=== PATIENT | female | born 1990 | race Caucasian/White ===

== ENCOUNTER 2018-09-14 14:09 | Emergency (ER) | payer OTHER, SELFPAY ==
[2018-09-14] VITALS (8 sets, daily range): BP systolic 103–133; BP diastolic 52–74; PULSE 67–89; RESP 14–16; TEMP 36.7; O2SAT 97–100
[2018-09-14] MEDS: ONDANSETRON 4 MG/2 ML INJ IV (17:22)
[2018-09-14] MEDS: SODIUM CHLORIDE 0.9% 1,000 ML 1000 ML IV ×2 (17:22→18:35)
--- NOTE | 2018-09-14 17:26 | ED.NAVMDI ---
HPI - Nausea/Vomiting/Diarrhea General Chief complaint: Nausea/Vomiting/Diarrhea Stated complaint: VOMITTING Time Seen by Provider: 09/14/18 17:05 Source: patient Mode of arrival: ambulatory Limitations: no limitations History of Present Illness HPI Narrative: This is a 28-year-old female comes to the emergency department with complaint of nausea and vomiting as well as diarrhea. Her 1st episode happened about 4 days ago. Patient states that she slowly got better over 24 hr. She continued to feel weak and tired and she has had quite a bit of morning sickness. She is probably about 9-10 weeks . Her last menstrual period was on June 29. Patient has had lab work Um verifying her but no ultrasound. Patient states that today her vomiting and diarrhea returned. She has not been able to keep much fluids in. She states she has been urinating but she is not very well hydrated. She has not had any fevers, she has a mild headache today with her vomiting. She states she does have a history of migraines. Patient does not any chest pain, no shortness of breath. She denies any abdominal pain. The 1st episode a couple days ago she did have a little bit of abdominal cramping with the diarrhea. Patient has a black or bloody stools. She does have any flank pain. She states she has had morning sickness with her 2 prior pregnancies which were successful pregnancies with 2 sons. But she has not had symptoms of this intensity. Related Data Allergies Allergy/AdvReac Type Severity Reaction Status Date / Time No Known Drug Allergies Allergy Verified 09/14/18 14:17 Review of Systems Review of Systems All systems reviewed & are unremarkable except as noted in HPI and below Constitutional Denies chills, Denies fever(s), Reports headache(s) (mild) and Reports poor appetite ENT Ears, Nose, Mouth, and Throat: Denies vertigo, Denies dizziness, Reports headache(s) (mild) and Denies nasal congestion Cardiovascular Denies chest pain, Denies diaphoresis, Denies syncope, Denies edema and Denies dyspnea Respiratory Denies change in phlegm color, Denies chest congestion, Denies cough, Denies excessive phlegm production, Denies dyspnea and Denies wheezing Gastrointestinal Gastrointestinal: Denies abdominal pain, Reports change in bowel habits, Denies constipation, Reports diarrhea, Reports nausea and Reports vomiting Genitourinary Reports as per HPI (), Denies abnormal vaginal bleeding, Denies hematuria, Denies urinary frequency, Denies dysuria, Denies flank pain, Denies urinary incontinence, Denies urinary urgency and Reports other (decreased/darker urine) Musculoskeletal Denies back pain Neurologic Denies vertigo, Denies dizziness, Denies syncope and Reports headache(s) (mild) Allergic/Immunologic Denies wheezing [facility] Social History Smoking Status: Never smoker Exam Narrative Exam Narrative: GENERAL: Alert and oriented x three, well-appearing female in mild distress. HEENT: Head normocephalic, atraumatic, EOMI, pupils reactive, face symmetric, moist mucous membranes NECK: Supple, full range of motion CARDIOVASCULAR: Regular rate and rhythm without murmurs, rubs or gallops. RESPIRATORY: Breath sounds equal bilaterally, no wheezes rales or rhonchi. ABDOMEN: Soft, nontender. Nondistended. Normoactive bowel sounds all 4 quadrants. No guarding or rebound, rigidity, no mass. No tympany. : No CVA tenderness EXTREMITIES: Normal range of motion, no clubbing or edema. Neurovascularly intact NEUROLOGICAL: Cranial nerves II through XII grossly intact. Moving all extremities SKIN: Warm, dry, no petechiae, no rashes or lesions. Initial Vital Signs Initial Vital Signs: Vital Signs Temperature 98.1 F 09/14/18 14:18 Pulse Rate 79 09/14/18 14:18 Respiratory Rate 16 09/14/18 14:18 Blood Pressure 133/67 09/14/18 14:18 Pulse Oximetry 99 09/14/18 14:18 Course Orders Ordered: Discontinued Medications Acetaminophen (Tylenol) 975 mg PO NOW ONE Stop: 09/14/18 18:02 Last Admin: 09/14/18 18:33 Dose: 975 mg Sodium Chloride (Normal Saline 0.9%) 1,000 mls @ 1,000 mls/hr IV BOLUS ONE Stop: 09/14/18 18:18 Last Infusion: 09/14/18 18:39 Dose: 0 mls/hr Admin: 09/14/18 17:22 Dose: 1,000 mls/hr Sodium Chloride (Normal Saline 0.9%) 1,000 mls @ 1,000 mls/hr IV BOLUS ONE Stop: 09/14/18 18:23 Last Infusion: 09/14/18 19:53 Dose: 0 mls/hr Admin: 09/14/18 18:35 Dose: 1,000 mls/hr Metoclopramide HCl (Reglan) 10 mg IV NOW ONE Stop: 09/14/18 18:58 Last Admin: 09/14/18 19:11 Dose: 10 mg Ondansetron HCl (Zofran) 4 mg IV NOW ONE Stop: 09/14/18 17:20 Last Admin: 09/14/18 17:22 Dose: 4 mg Ondansetron HCl (Zofran Odt Prepack) 1 bottle MISC SEEINSTR ONE Stop: 09/14/18 19:01 Last Admin: 09/14/18 19:23 Dose: 1 bottle Vital Signs - 8 hr 09/14/18 14:18 09/14/18 16:40 09/14/18 17:40 Temperature 98.1 F Pulse Rate 79 67 74 Respiratory Rate 16 14 14 Blood Pressure 133/67 Blood Pressure [Left Arm] 126/74 105/70 Pulse Oximetry 99 97 100 MDM - Nausea/Vomiting/Diarrhea Lab Data Attestation: I reviewed the patient's lab results. Result diagrams: 09/14/18 17:21 09/14/18 17:21 Lab Results 09/14/18 09/14/18 Range/Units 17:21 17:21 WBC 7.5 (4.5-11.0) X10^3/uL RBC 4.69 (4.0-5.2) X10^6/uL Hgb 13.0 (12.0-16.0) g/dL Hct 38.1 (36-46) % MCV 81.2 (80-100) fL MCH 27.7 (26-34) PG MCHC 34.2 (30-36) % RDW 13.4 (11.6-14.8) % Plt Count 230 (150-400) X10^3/uL Neut % (Auto) 59.3 (50-75) % Lymph % (Auto) 32.5 (25-40) % [place] % (Auto) 5.5 (3-14) % Eos % (Auto) 2.2 (2-4) % Baso % (Auto) 0.5 (0-2) % Neut # (Auto) 4400 (9926-5744) /uL Sodium 140 (137-145) mmol/L Potassium 3.4 (3.4-5.1) mmol/L Chloride 106 (98-107) mmol/L Carbon Dioxide 22 (22-32) mmol/L BUN 7 (7-17) mg/dL Creatinine 0.50 L (0.52-1.04) mg/dL Estimated GFR > 60.0 (>60) mL/min BUN/Creatinine Ratio 14.0 (6-22) Glucose 77 (70-100) mg/dL Calcium 11.6 H (8.4-10.2) mg/dL Total Bilirubin 0.7 (0.2-1.3) mg/dL AST 22 (14-36) IU/L ALT 27 (9-52) IU/L Alkaline Phosphatase 84 (38-126) U/L Total Protein 7.2 (6.3-8.2) g/dL Albumin 4.4 (3.5-5.0) g/dL Globulin 2.8 (1.7-4.1) g/dL Albumin/Globulin Ratio 1.6 (1.0-2.8) Lipase 46 (23-300) U/L Urine Dip Bedside Urine Glucose Negative Bedside Urine Bilirubin - Negative Bedside Urine Ketone +++ 80 Urine Specific [place] 1.020 Bedside Urine Occult Blood - Negative Bedside Urine pH 6.0 Bedside Urine Protein - Negative Bedside Urine Urobilinogen - Negative Bedside Urine Nitrite - Negative Bedside Urine Leukocytes - Negative Esterase MDM Narrative Medical decision making narrative: Patient looks well, her vitals are stable. She is 11 weeks by dates. Patient has been having some morning sickness, this could potentially be hyperemesis versus a worsening of her morning sickness, a viral illness or other cause. Her belly exam is benign and she is not having any abdominal pain. Will hold off ultrasound as she is scheduled to have 1 on Friday she is not having any symptoms concerning for ectopic or other major changes. Lab work was ordered as well as Zofran and a L of fluids. On recheck patient's nauseous still present but her headache is doing better after some Tylenol. She has not had any vomiting but still feels sort of upset stomach. She has given a urine sample. Discharge Plan Departure Patient Disposition: Home Clinical Impression: Nausea vomiting and diarrhea, Discharge Date/Time: 09/14/18 20:16 Interventions: ED Discharge Assessment Last Done: 09/14/18 20:16 Instructions: DI for Vomiting -- Adult Activity Restrictions/Additional Instructions: Follow-up with your primary care physician this week. May continue Zofran 1 tablet every 6 hr sublingually as needed for nausea. Make sure your continue to stay hydrated whether this is with fluid, Gatorade or other similar forms of hydration. Return to the emergency department for fevers, abdominal pain, flank pain, persistent vomiting, signs of dehydration or other new or concerning symptoms.
[2018-09-14 17:34] LABS: Add Manual Diff / Slide Review NO; Basophils Percent Auto 0.5 % (0-2); Eosinophils Percent Auto 2.2 % (2-4); Hematocrit 38.1 % (36-46); Lymphocytes Percent Auto 32.5 % (25-40); Mean Corpuscular HGB Conc 34.2 % (30-36); Mean Corpuscular Hemoglobin 27.7 PG (26-34); Mean Corpuscular Volume 81.2 fL (80-100); Monocytes Percent Auto 5.5 % (3-14); Neutrophils Absolute Auto 4400 /uL (1500-7000); Neutrophils Percent Auto 59.3 % (50-75); Platelet Count 230 X10^3/uL (150-400); Red Blood Cell Count 4.69 X10^6/uL (4.0-5.2); Red Cell Distribution Width 13.4 % (11.6-14.8); White Blood Cell Count 7.5 X10^3/uL (4.5-11.0)
[2018-09-14 17:54] LABS: Alanine Aminotransferase 27 IU/L (9-52); Albumin 4.4 g/dL (3.5-5.0); Albumin Globulin Ratio 1.6 (1.0-2.8); Alkaline Phosphatase 84 U/L (38-126); Aspartate Aminotransferase 22 IU/L (14-36); Bilirubin Total 0.7 mg/dL (0.2-1.3); Blood Urea Nitrogen 7 mg/dL (7-17); Calcium 11.6 mg/dL (8.4-10.2); Carbon Dioxide 22 mmol/L (22-32); Chloride 106 mmol/L (98-107); Estimated Glomerular Filt Rate > 60.0 mL/min (>60); Globulin 2.8 g/dL (1.7-4.1); Glucose 77 mg/dL (70-100); HEMOLYSIS < 15 (0-50); Lipase 46 U/L (23-300); Potassium 3.4 mmol/L (3.4-5.1); Sodium 140 mmol/L (137-145); Total Protein 7.2 g/dL (6.3-8.2)
[2018-09-14] MEDS: ACETAMINOPHEN 325 MG TABLET 975 MG PO (18:33)
[2018-09-14] MEDS: METOCLOPRAMIDE 10 MG/2 ML INJ IV (19:11)
--- NOTE | 2018-09-14 19:16 | PC.NURSE ---
9-10 weeks , [id number]. onset of nausea and vomiting, last friday, , felt fine fri,sat, friday. onset of vomiting today at 11am, 9times. noted pt wretching 3 times while waiting, medicated for comfort.
[2018-09-14] MEDS: ONDANSETRON 4 MG ODT PREPACK 1 BOTTLE MISC (19:23)
== END 2018-09-14 20:16 | disposition home or self-care (01) ==
PROVIDERS: Emergency Provider Emergency Medicine
DX: O21.9 Vomiting of pregnancy, unspecified (principal); Z3A.11 11 weeks gestation of pregnancy
CPT/HCPCS: 36591; 80053; 81003; 83690; 85025; 96361; 96374; 96375; 99284; J2405; J2765

== ENCOUNTER → 2019-01-21 09:55 | Outpatient (CLI) | payer OTHER, SELFPAY ==
[2019-01-21 10:26] LABS: Hematocrit 35.4 % (36-46); Hemoglobin 11.8 g/dL (12.0-16.0)
[2019-01-21 12:38] LABS: GTT (PREG) 1 Hour PP 50gm Dose 78 mg/dL (76-139)
== END ==
DX: O26.899 Other specified pregnancy related conditions, unspecified trimester (principal); Z3A.29 29 weeks gestation of pregnancy; Z67.91 Unspecified blood type, Rh negative
CPT/HCPCS: 82950; 85014; 85018; 86850

== ENCOUNTER 2019-02-28 17:56 | Observation (INO) | payer OTHER, SELFPAY ==
[2019-02-28] MEDS: LACTATED RINGERS 1,000 ML 1000 ML IV ×2 (18:45→19:59)
[2019-02-28] MEDS: ONDANSETRON 4 MG/2 ML INJ IV (18:55)
--- NOTE | 2019-03-01 11:09 | PM.OBTRLD ---
Visit Information Visit Information Date of evaluation: 02/28/19 Primary OB Provider: Shane Martines On-call OB Provider: Vanesa Garcia Reason for Evaluation: Yes pre-term labor Comments/Additional reasons for admission: Nausea vomiting and diarrhea Vital Signs Vital Signs: Blood pressure 98/56, pulse of 82, temperature 97.7? [facility] Social History Smoking Status: Never smoker Evaluation Evaluation Baseline heart rate: 145 Variability: Moderate (11-25) monitor accelerations: Present monitor decelerations: Absent Contraction Frequency (minutes): 4 Uterine Contraction Intensity: Mild Category of Tracing: I Cervical dilation (cm): 0 Cervical effacement (%): 0 station: -4 Diagnosis, Plan/Disposition Final Diagnosis (1) 34 weeks gestation of : Current Visit: No Status: Acute (2) Premature uterine contractions causing threatened premature labor in third trimester: Current Visit: No Status: Acute (3) Gastroenteritis: Current Visit: No Status: Acute Plan/Disposition Plan: Patient with nausea vomiting and diarrhea that brought her to the hospital. She was having contractions on the monitor. She received Zofran and 2 L of IV fluids. The patient's cervix was checked and was not dilated. Patient felt better after her fluids and Zofran and was discharged home. She is to call if her symptoms worsen status continued to improve. OB Disposition: home
--- NOTE | 2019-03-01 11:12 | P.TNLD_ITS ---
Visit Information Visit Information Date of evaluation: 02/28/19 Primary OB Provider: Shane Martines On-call OB Provider: Vanesa Garcia Reason for Evaluation: Yes pre-term labor Comments/Additional reasons for admission: Nausea vomiting and diarrhea Vital Signs Vital Signs: Blood pressure 98/56, pulse of 82, temperature 97.7? [facility] Social History Smoking Status: Never smoker Evaluation Evaluation Baseline heart rate: 145 Variability: Moderate (11-25) monitor accelerations: Present monitor decelerations: Absent Contraction Frequency (minutes): 4 Uterine Contraction Intensity: Mild Category of Tracing: I Cervical dilation (cm): 0 Cervical effacement (%): 0 station: -4 Diagnosis, Plan/Disposition Final Diagnosis (1) 34 weeks gestation of : Current Visit: No Status: Acute (2) Premature uterine contractions causing threatened premature labor in third trimester: Current Visit: No Status: Acute (3) Gastroenteritis: Current Visit: No Status: Acute Plan/Disposition Plan: Patient with nausea vomiting and diarrhea that brought her to the hospital. She was having contractions on the monitor. She received Zofran and 2 L of IV fluids. The patient's cervix was checked and was not dilated. Patient felt better after her fluids and Zofran and was discharged home. She is to call if her symptoms worsen status continued to improve. OB Disposition: home
== END 2019-02-28 21:30 | disposition home or self-care (01) ==
LOC: LABOR 17:58
PROVIDERS: Admitting Provider Specialist; Visit Provider Specialist
DX: O47.03 False labor before 37 completed weeks of gestation, third trimester (principal); K52.9 Noninfective gastroenteritis and colitis, unspecified; Z3A.34 34 weeks gestation of pregnancy
CPT/HCPCS: 59025; 59050; G0378; G0379; J2405

== ENCOUNTER → 2019-03-02 17:01 | Outpatient (CLI) | payer OTHER, SELFPAY ==
[2019-03-03 18:53] LABS: Strep Grp B PCR NEG for Grp B Strep
== END ==
DX: Z34.83 Encounter for supervision of other normal pregnancy, third trimester (principal); Z3A.35 35 weeks gestation of pregnancy
CPT/HCPCS: 87653

== ENCOUNTER 2019-03-22 03:16 | Inpatient (IN) | payer OTHER, SELFPAY ==
[2019-03-22 04:26] LABS: Add Manual Diff / Slide Review NO; Basophils Absolute Auto 0 /uL (0-100); Basophils Percent Auto 0.4 % (0-2); Eosinophils Absolute Auto 200 /uL (0-450); Eosinophils Percent Auto 2.1 % (2-4); Hematocrit 33.7 % (36-46); Hemoglobin 11.1 g/dL (12.0-16.0); Lymphocytes Absolute Auto 1900 /uL (1100-4500); Lymphocytes Percent Auto 18.7 % (25-40); Mean Corpuscular Hemoglobin 26.1 PG (26-34); Monocytes Absolute Auto 900 /uL (0-900); Monocytes Percent Auto 8.5 % (3-14); Neutrophils Absolute Auto 7200 /uL (1500-7000); Neutrophils Percent Auto 70.3 % (50-75); Platelet Count 240 X10^3/uL (150-400); Red Blood Cell Count 4.27 X10^6/uL (4.0-5.2); Red Cell Distribution Width 13.4 % (11.6-14.8); White Blood Cell Count 10.2 X10^3/uL (4.5-11.0)
[2019-03-22] MEDS: LACTATED RINGERS 1,000 ML 100 ML IV (04:37)
[2019-03-22 04:39] VITALS: BP 121/72
--- NOTE | 2019-03-22 05:07 | P.HPOB_ITS ---
OB HPI Date/Time Date of admission: 03/22/19 Date Patient Seen: 03/22/19 Time Patient Seen: 04:58 History of Present Condition Chief complaint: Evaluation of labor : 3 Para: 2 Estimated Date of Delivery: 04/05/19 Estimated Gestational Age (weeks): 38 Narrative: Kandi Breen is a 29 year old female 3 para 2 at 38 weeks gestation who presented in active labor One episode of leakage of fluid. No vaginal bleeding. History of Present care: good care, initiated at week #, number of visits (7 at ) and pounds weight gain (20) Dating criteria: LMP confirmed by 1st trimester US Ultrasounds: normal 1st trimester US and normal mid trimester US Obstetrical complications: none Medical complications: none Preadmission Labs Blood type: 0 (-) negative -: Antibody screen: negative, GBS status: negative, HBsAG: negative, HIV: negative and RPR/VDLR: negative -: Chlamydia screen: not detected and Gonorrhea screen: not detected -: Rubella: immune and Varicella: immune HCT: 35.4 HCAB: negative PAP: Normal Integrated screen: normal Urine: No growth 1 hr GTT: 78 Prior (ies) History: 2 in [place]. distress secondary to double nuchal cord with both 8#6oz, 7#3oz Evaluation Evaluation Baseline heart rate: 130 Variability: Moderate (11-25) monitor accelerations: Present monitor decelerations: Absent Contraction Frequency (minutes): 3 Uterine Contraction Intensity: Strong/Firm Category of Tracing: I Cervical dilation (cm): 7 Cervical effacement (%): 90 station: -2 Laboratory results: Laboratory Tests 03/22/19 04:10 WBC 10.2 RBC 4.27 Hgb 11.1 L Hct 33.7 L MCV 79.0 L MCH 26.1 MCHC 33.0 RDW 13.4 Plt Count 240 Neut % (Auto) 70.3 Lymph % (Auto) 18.7 L [place] % (Auto) 8.5 Eos % (Auto) 2.1 Baso % (Auto) 0.4 Neut # (Auto) 7200 H Lymph # (Auto) 1900 [place] # (Auto) 900 Eos # (Auto) 200 Baso # (Auto) 0 Non-invasive Membranes Rupture Test: positive [facility] Medical History (Updated 03/22/19 @ 05:06 by Agatha Sifuentes MD) H/O abnormal cervical Papanicolaou smear (Acute) Kidney stones (Acute) Surgical History (Updated 03/22/19 @ 05:05 by Agatha Sifuentes MD) H/O oral surgery (Acute) Social History Smoking Status: Never smoker Social History Smoking Status: Never smoker Meds Home Medications Medication Instructions Recorded Confirmed Type 1 tab PO DAILY 12/16/18 03/22/19 History vitamin,calcium,yidjjsnn-gsht-ywchq acid tablet acyclovir 400 mg tablet 400 mg PO BID #60 tab 02/02/19 03/22/19 Rx Allergies Allergy/AdvReac Type Severity Reaction Status Date / Time Latex, Natural Rubber Allergy Mild Rash Verified 12/16/18 12:26 Exam Vital Signs (past 8 hours): - 03/22/19 04:39 Blood Pressure 121/72 Narrative Exam Narrative: Generally: Patient is comfortable with an epidural Lungs: Clear to auscultation bilaterally Cardiovascular: Regular rate and rhythm Fundal height: 38 cm Estimated weight: 7 lb Extremities: Negative Homans, no edema Objective Labs Result Diagrams: 03/22/19 04:10 Labs: Laboratory Results - last 24 hr 03/22/19 04:10 WBC 10.2 RBC 4.27 Hgb 11.1 L Hct 33.7 L MCV 79.0 L MCH 26.1 MCHC 33.0 RDW 13.4 Plt Count 240 Neut % (Auto) 70.3 Lymph % (Auto) 18.7 L [place] % (Auto) 8.5 Eos % (Auto) 2.1 Baso % (Auto) 0.4 Neut # (Auto) 7200 H Lymph # (Auto) 1900 [place] # (Auto) 900 Eos # (Auto) 200 Baso # (Auto) 0 Assessment and Plan Assessment and Plan Assessment and Plan narrative: Assessment: 29-year-old 3 para 2 at 38 weeks gestation in active labor GBS negative History of some anxiety with the prior 2 deliveries due to distress Plan: Expected management to spontaneous vaginal delivery Time Spent with Patient Total time spent with greater than 50% in coordination of care (as documented) at patient's floor/unit and/or counseling patient:: 15-24 minutes
--- NOTE | 2019-03-22 08:01 | PM.OBPRVD ---
Delivery date: 03/22/19 Intrapartal events: None Cervical ripening method: none Delivery monitor: external FHT and external uterine Route of delivery: L&D Laceration Description: None Estimated blood loss (mL): 200 Anesthesia type: Epidural Complications: None Narrative: Patient is a 29-year-old white female three para two. The patient had two prior deliveries with nuchal cords and a nuchal cord had been checked for recently had was found x1. Patient had an uneventful . Patient presented in labor and was 8-9 cm by 7:00 a.m.. Patient was complete by 7:30 a.m. and pushed and delivered spontaneously a live born male with scores of eight at 1 minute nine at 5 minutes in good condition. Placenta delivered spontaneously. There were no nuchal cords. The cord had three vessels. The estimated blood loss was 200 cc. Sponge and needle counts were correct. There were no cervical or vaginal or perineal lacerations Plan for aftercare: Routine aftercare
[2019-03-22] MEDS: IBUPROFEN 600 MG TABLET PO ×3 (08:55→23:10)
[2019-03-22] MEDS: LANOLIN OINT 7 GM 1 APPLIC TOP (09:03)
[2019-03-23] MEDS: IBUPROFEN 600 MG TABLET PO ×2 (04:28→10:49)
[2019-03-23 06:23] LABS: Hematocrit 31.3 % (36-46); Hemoglobin 10.3 g/dL (12.0-16.0)
[2019-03-23] MEDS: DOCUSATE 250 MG CAPSULE PO (08:47)
[2019-03-23] MEDS: FERROUS GLUCONATE 324 MG TABLET PO (08:47)
[2019-03-23] MEDS: RHO(D) IMMUNE GLOBULIN 1,500 UNIT SYRINGE 1500 UNIT IM (09:37)
--- NOTE | 2019-03-23 11:06 | PM.OBDS.1 ---
Discharge Providers Date of admission: 03/22/19 03:16 Discharge Date: 03/23/19 Consults: 03/22/19 03:42 Consult to Anesthesiology Urgent Comment: Consulting Provider: Jonatan Saldaña Reason for consultation: Labor pain management 03/22/19 08:51 Consult to Multimedia Authoring Specialist Routine Comment: Discharge provider: Shane Martines MD Summary Date Patient Seen: 03/23/19 Time Patient Seen: 11:06 Procedures: The patient is a 29-year-old two now para two who presented in active labor. Patient had a rapid labor with epidural anesthesia and delivered spontaneously a live born female infant with scores of nine and nine. The estimated blood loss was 200 cc. Post delivery the patient did well. She remained afebrile with stable vital signs and was progressively elevated and ambulated. She was discharged home for follow-up in four weeks. Hospital Course: Please see above Peripartum Data Delivery Method: Natural Vaginal Laceration description: None complications: none Status at Discharge Cognitive/behavioral status at discharge: oriented Functional status at discharge: independent ambulation Overall status at discharge: patient is progressing back to baseline Time Spent with Patient Total time spent providing and/or coordinating discharge services: Objective Labs Result Diagrams: 03/23/19 06:05 Labs: Laboratory Results - last 24 hr 03/23/19 03/23/19 06:05 06:05 Hgb 10.3 L Hct 31.3 L Maternal Bleed Negative Discharge Plan Discharge Plan Patient Disposition: Home Discharge Med Rec/Prescriptions Prescriptions: New oxycodone-acetaminophen 5-325 mg Tablet 2 tab PO Q4HR Qty: 14 RF: 0 ibuprofen 600 mg Tablet 600 mg PO Q6H PRN (Reason: As Needed For Fever/Mild Pain) Qty: 20 RF: 0 docusate sodium 250 mg Capsule 250 mg PO DAILY Qty: 10 RF: 0 Prenatabs Rx 29 mg iron- 1 mg Tablet 1 tab PO DAILY Qty: 60 RF: 0 Discontinued acyclovir 400 mg tablet 400 mg PO BID Qty: 60 RF: 3 prenat.vits,bravo,lij-madb-dedvp tablet 1 tab PO DAILY RF: 0 Follow up/Referrals: Shane Martines MD [Physician] - 04/20/19 Provider Discharge Instructions Diet: Diet as Tolerated Activity: Up ad ck Skin/Wound/Dressing Care Report to your healthcare provider any signs of infection, such as:: chills, fever, increased pain and unusual redness Discharge Data Attending Provider: Agatha Sifuentes Admit Date/Time: 03/22/19 03:16
[2019-03-23 13:01] VITALS: BP 110/69; PULSE 84; RESP 16; TEMP 37.1
== END 2019-03-23 14:10 | disposition home or self-care (01) | DRG 807 ==
PROVIDERS: Admitting Provider Obstetrics & Gynecology; Visit Provider Obstetrics & Gynecology
DX: O98.32 Other infections with a predominantly sexual mode of transmission complicating childbirth (principal); Z37.0 Single live birth; B00.9 Herpesviral infection, unspecified; Z3A.38 38 weeks gestation of pregnancy
CPT/HCPCS: 01967; 59050; 59410; 84112; 85014; 85018; 85025; 85461; 86850; 86870; 86900; 86901; G0379; J2790

== ENCOUNTER 2019-06-23 11:01 | Emergency (ER) | payer OTHER, SELFPAY ==
[2019-06-23 11:05] VITALS: BP 115/69; PULSE 77; RESP 20; TEMP 36.4; O2SAT 99; BMI 25.7
--- NOTE | 2019-06-23 11:29 | PC.NURSE ---
Patient three month old baby had viral meningitis three weeks ago. Mother has had fever, neck pain and body aches since friday. Some nausea and vomiting.
[2019-06-23 11:51] LABS: Lactate (Lactic Acid) 0.8 mmol/L (0.7-2.1)
[2019-06-23 11:52] LABS: Blood Urea Nitrogen 12 mg/dL (7-17); Calcium 11.5 mg/dL (8.4-10.2); Carbon Dioxide 27 mmol/L (22-32); Chloride 105 mmol/L (98-107); Estimated Glomerular Filt Rate > 60.0 mL/min (>60); Glucose 95 mg/dL (70-100); HEMOLYSIS < 15 (0-50); Potassium 4.2 mmol/L (3.4-5.1); Sodium 140 mmol/L (137-145)
[2019-06-23 11:56] LABS: Add Manual Diff / Slide Review NO; Basophils Absolute Auto 0 /uL (0-100); Basophils Percent Auto 0.6 % (0-2); Eosinophils Absolute Auto 100 /uL (0-450); Eosinophils Percent Auto 3.1 % (2-4); Hematocrit 43.1 % (36-46); Hemoglobin 14.3 g/dL (12.0-16.0); Lymphocytes Absolute Auto 1200 /uL (1100-4500); Lymphocytes Percent Auto 34.1 % (25-40); Mean Corpuscular HGB Conc 33.1 % (30-36); Mean Corpuscular Hemoglobin 26.6 PG (26-34); Mean Corpuscular Volume 80.2 fL (80-100); Monocytes Absolute Auto 400 /uL (0-900); Monocytes Percent Auto 10.9 % (3-14); Neutrophils Absolute Auto 1900 /uL (1500-7000); Neutrophils Percent Auto 51.3 % (50-75); Platelet Count 199 X10^3/uL (150-400); Red Blood Cell Count 5.37 X10^6/uL (4.0-5.2); Red Cell Distribution Width 15.7 % (11.6-14.8); White Blood Cell Count 3.6 X10^3/uL (4.5-11.0)
[2019-06-23] MEDS: ONDANSETRON 4 MG/2 ML INJ IV (12:13)
[2019-06-23] MEDS: KETOROLAC 60 MG/2 ML VIAL 15 MG IV (12:13)
[2019-06-23] MEDS: SODIUM CHLORIDE 0.9% 1,000 ML 1000 ML IV (12:13)
[2019-06-23 12:21] VITALS: BP 113/69; PULSE 72; RESP 17; O2SAT 99
[2019-06-23 12:23] LABS: Influenza A and B by PCR Rapid Negative (Negative)
[2019-06-23 13:00] VITALS: BP 105/66; PULSE 84; RESP 17; O2SAT 97
[2019-06-23 14:00] VITALS: BP 94/55; PULSE 73; RESP 17; O2SAT 100
[2019-06-23 14:04] VITALS: BP 94/55; PULSE 73; RESP 20; O2SAT 100
--- NOTE | 2019-06-23 19:09 | ED_ITS ---
HPI - Fever General Chief Complaint: Fever Stated Complaint: neck/head pain/fever/vomiting x4 days Time Seen by Provider: 06/23/19 11:05 Source: patient Mode of arrival: Ambulatory Limitations: no limitations History of Present Illness HPI Narrative: 29-year-old female nonsmoker and otherwise healthy patient presents with about a week of runny nose, sore throat and subjective fever with the development of some generalized headache and occasional neck pain. She has admittedly had a decreased appetite and is slightly nauseated but has had no vomiting. She denies any chest pain, shortness of breath or cough. She has had no atypical rash, or recent injury. She is actually feeling relatively well, of note her 3-month-old was recently seen and evaluated for a viral meningitis and is now perfectly fine and well. MD complaint: other Onset (ago): week(s) Temperature Source: subjective Context: sick contacts and other(s) with similar symptoms Associated symptoms: headache, rhinorrhea, nasal congestion and sore throat Relieving factors: rest Treatments prior to arrival fever: acetaminophen and ibuprofen Related Data Previous Rx's Medication Instructions Recorded ibuprofen 600 mg PO Q6H PRN #20 tab 03/23/19 vit,[id number] 1 tab PO DAILY #60 tab 03/23/19 [Prenatabs Rx] Double Electric Breast Pump and #1 ea 03/31/19 Supplies ketorolac 10 mg PO Q6H PRN #14 tab 06/23/19 Allergies Allergy/AdvReac Type Severity Reaction Status Date / Time Latex, Natural Rubber Allergy Mild Rash Verified 05/04/19 10:23 Review of Systems Constitutional Constitutional: Reports chills, Denies fatigue, Reports fever(s), Denies frequent falls, Reports headache(s), Denies lethargy and Denies weakness Eyes Eyes: Denies change in vision, Denies eye discharge, Denies irritation and Denies loss of vision ENT Ears, Nose, Mouth, and Throat: Denies change in voice, Denies dizziness, Reports headache(s), Reports neck pain, Reports sore throat and Denies throat swelling Cardiovascular Cardiovascular: Denies chest pain, Denies irregular heart rhythm, Denies lightheadedness, Denies palpitations, Denies dyspnea, Denies dyspnea on exertion and Denies orthopnea Respiratory Respiratory: Denies cough, Denies dyspnea, Denies dyspnea on exertion and Denies wheezing Gastrointestinal Gastrointestinal: Denies abdominal pain, Denies change in bowel habits, Denies diarrhea, Denies nausea and Denies vomiting Genitourinary Genitourinary: Denies hematuria, Denies flank pain, Denies urinary incontinence and Denies urinary urgency Musculoskeletal Musculoskeletal: Denies back pain, Denies muscle weakness, Reports neck pain, Denies numbness and Denies tingling Integumentary/Breasts Skin/Breast: Denies pruritus, Denies erythema, Denies rash and Denies wounds Neurologic Neurologic: Denies behavioral changes, Denies confusion, Denies dizziness, Denies frequent falls, Reports headache(s), Denies loss of vision, Denies numbness, Denies tingling and Denies weakness Psychiatric Psychiatric: Denies anxiety, Denies behavioral changes, Denies confusion, Denies depression, Denies homicidal ideation and Denies suicidal ideation Endocrine Endocrine: Denies fatigue, Denies flushing and Denies palpitations Hematologic/Lymphatic Hematologic/Lymphatic: Denies easy bruising Allergic/Immunologic Allergic/Immunologic: Denies urticaria, Denies throat swelling and Denies wheezing [facility] Medical History H/O abnormal cervical Papanicolaou smear (Acute) Kidney stones (Acute) Surgical History H/O oral surgery (Acute) Social History Smoking Status: Never smoker Social History Smoking Status: Never smoker Exam Narrative Exam Narrative: GENERAL: [29] year old patient appears stated age. Well- nourished, well-developed patient, in mild distress. HEAD: Atraumatic. Normocephalic. Nontender over sinuses, no findings with transillumination EYES: Pupils equal round and reactive. Extraocular motions intact. No scleral icterus. No injection or drainage. ENT: Nose without bleeding, purulent drainage. Throat without erythema, tonsillar hypertrophy or exudate. Airway patent. NECK: Trachea midline. Non tender, full range of motion. Negative Kernig's and Brudzinski's. CARDIOVASCULAR: Regular rate and rhythm without murmurs, gallops, or rubs. RESPIRATORY: Clear to auscultation. Breath sounds equal bilaterally. No wheezes, rales, or rhonchi. GASTROINTESTINAL: Abdomen soft, non-tender, nondistended. EXTREMITIES: No edema or joint tenderness. BACK: Nontender without deformity or crepitance. No flank tenderness. NEURO: AOx3. SKIN: No rash or erythema of visible areas Initial Vital Signs Initial Vital Signs: Vital Signs Temperature 97.5 F L 06/23/19 11:05 Pulse Rate 77 06/23/19 11:05 Respiratory Rate 20 06/23/19 11:05 Blood Pressure 115/69 06/23/19 11:05 Pulse Oximetry 99 06/23/19 11:05 Course Orders Ordered: ED Orders 06/23/19 11:20 Basic Metabolic Panel Stat Complete Blood Count AUTO DIFF Stat Lactate (Lactic Acid) Stat 06/23/19 12:05 Influenza A and B by PCR Rapid Stat 06/23/19 13:21 Blood Culture Stat Discontinued Medications Sodium Chloride (Normal Saline 0.9%) 1,000 mls @ 1,000 mls/hr IV BOLUS ONE Stop: 06/23/19 12:34 Last Admin: 06/23/19 12:13 Dose: 1,000 mls/hr Documented by: EDU Ketorolac Tromethamine (Toradol) 15 mg IV NOW ONE Stop: 06/23/19 12:08 Last Admin: 06/23/19 12:13 Dose: 15 mg Documented by: EDU Ondansetron HCl (Zofran) 4 mg IV Q4HR PRN PRN Reason: Nausea And Vomiting Last Admin: 06/23/19 12:13 Dose: 4 mg Documented by: EDU Reevaluation(s) Reevaluation #1: Patient had a near complete resolution of symptoms after fluids and Toradol. Vital Signs Vital signs: Vital Signs - 8 hr 06/23/19 12:21 06/23/19 13:00 06/23/19 14:00 Pulse Rate 72 84 73 Respiratory Rate 17 17 17 Blood Pressure [Right Arm] 113/69 105/66 94/55 L Pulse Oximetry 99 97 100 06/23/19 14:04 Pulse Rate 73 Respiratory Rate 20 Blood Pressure [Right Arm] 94/55 L Pulse Oximetry 100 MDM - Fever Lab Data Result diagrams: 06/23/19 11:20 06/23/19 11:20 Labs: Lab Results 06/23/19 06/23/19 06/23/19 Range/Units 11:20 11:20 11:20 WBC 3.6 L (4.5-11.0) X10^3/uL RBC 5.37 H (4.0-5.2) X10^6/uL Hgb 14.3 (12.0-16.0) g/dL Hct 43.1 (36-46) % MCV 80.2 (80-100) fL MCH 26.6 (26-34) PG MCHC 33.1 (30-36) % RDW 15.7 H (11.6-14.8) % Plt Count 199 (150-400) X10^3/uL Neut % (Auto) 51.3 (50-75) % Lymph % (Auto) 34.1 (25-40) % [place] % (Auto) 10.9 (3-14) % Eos % (Auto) 3.1 (2-4) % Baso % (Auto) 0.6 (0-2) % Neut # (Auto) 1900 (6983-5517) /uL Lymph # (Auto) 1200 (6585-6745) /uL [place] # (Auto) 400 (0-900) /uL Eos # (Auto) 100 (0-450) /uL Baso # (Auto) 0 (0-100) /uL Sodium 140 (137-145) mmol/L Potassium 4.2 (3.4-5.1) mmol/L Chloride 105 (98-107) mmol/L Carbon Dioxide 27 (22-32) mmol/L BUN 12 (7-17) mg/dL Creatinine 0.60 (0.52-1.04) mg/dL Estimated GFR > 60.0 (>60) mL/min BUN/Creatinine Ratio 20.0 (6-22) Glucose 95 (70-100) mg/dL Lactate 0.8 (0.7-2.1) mmol/L Calcium 11.5 H (8.4-10.2) mg/dL Influenza A & B (PCR) (Negative) 06/23/19 Range/Units 12:05 WBC (4.5-11.0) X10^3/uL RBC (4.0-5.2) X10^6/uL Hgb (12.0-16.0) g/dL Hct (36-46) % MCV (80-100) fL MCH (26-34) PG MCHC (30-36) % RDW (11.6-14.8) % Plt Count (150-400) X10^3/uL Neut % (Auto) (50-75) % Lymph % (Auto) (25-40) % [place] % (Auto) (3-14) % Eos % (Auto) (2-4) % Baso % (Auto) (0-2) % Neut # (Auto) (8733-3269) /uL Lymph # (Auto) (5948-7605) /uL [place] # (Auto) (0-900) /uL Eos # (Auto) (0-450) /uL Baso # (Auto) (0-100) /uL Sodium (137-145) mmol/L Potassium (3.4-5.1) mmol/L Chloride (98-107) mmol/L Carbon Dioxide (22-32) mmol/L BUN (7-17) mg/dL Creatinine (0.52-1.04) mg/dL Estimated GFR (>60) mL/min BUN/Creatinine Ratio (6-22) Glucose (70-100) mg/dL Lactate (0.7-2.1) mmol/L Calcium (8.4-10.2) mg/dL Influenza A & B (PCR) Negative (Negative) MDM Narrative Medical decision making narrative: 29-year-old female with typical upper respiratory type symptoms. She has a very reassuring exam and no meningeal findings. She is awake, alert and oriented. With a lengthy discussion about the utility of a lumbar puncture and given her very reassuring exam, and lack of meningeal findings. We elected to forego the procedure for now, she understands that for worsening symptoms she will return and we can perform the procedure at any time. Discharge Plan Departure Patient Disposition: Home Clinical Impression: Viral infection Discharge Date/Time: 06/23/19 14:10 Instructions: DI for Fever (Symptom) -- Adult Activity Restrictions/Additional Instructions: *You have been diagnosed with [ fever, headache, upper respiratory infection ] *What to do: *Take medications as directed *Follow up with your primary care provider in 2-3 days, call for an appointment. Let them know you were seen in the Emergency Department and that we ask that you be seen in follow up *Return to ER if you should have any new, worsening or concerning symptoms Prescriptions: New ketorolac 10 mg tablet 10 mg PO Q6H PRN (Reason: pain) Qty: 14 RF: 0 No Action (DME) Double Electric Breast Pump and Supplies Qty: 1 RF: 0 ibuprofen 600 mg Tablet 600 mg PO Q6H PRN (Reason: As Needed For Fever/Mild Pain) Qty: 20 RF: 0 Prenatabs Rx 29 mg iron- 1 mg Tablet 1 tab PO DAILY Qty: 60 RF: 0 Referrals: Brian Becerril CNP [Primary Care Provider] -
== END 2019-06-23 14:10 | disposition home or self-care (01) ==
PROVIDERS: Emergency Provider Emergency Medicine; PCP Registered Nurse Diabetes Educator
DX: B34.9 Viral infection, unspecified (principal); R51 Headache; R50.9 Fever, unspecified
CPT/HCPCS: 36415; 80048; 83605; 85025; 87040; 87400; 87502; 96374; 96375; 99283; 99284; J1885; J2405

== ENCOUNTER 2020-02-04 10:37 | Emergency (ER) | payer OTHER, SELFPAY ==
[2020-02-04 10:40] VITALS: BP 124/77; PULSE 76; RESP 14; TEMP 36.4; O2SAT 99
[2020-02-04 11:06] LABS: Pregnancy Test Urine Negative (Negative)
--- NOTE | 2020-02-04 11:12 | ED_ITS ---
HPI - Female Genitourinary General Chief complaint: Urogenital-Female Stated complaint: Surgery last friday, Left side pain after Time Seen by Provider: 02/04/20 10:53 Source: patient Mode of arrival: Ambulatory Limitations: no limitations History of Present Illness HPI Narrative: CC: Left flank Pain HPI: The patient is a 29-year-old female who states that she is 1 year and is breast-feeding her baby. She had surgery 1 week ago at [facility] at which time Dr. Kwong placed a left ureteral stent for kidney stones, hematuria and ureteral colic. She has had increased hematuria but denies any fever chills or sweats. She denies any fall or injury. Her pain and discomfort is 8/10 in intensity. She has had no relief from the hydrocodone prescribed. Her pain was slightly improved for a couple of days when she was taking acetaminophen and ibuprofen. The patient is here for re-evaluation and pain management. She called her doctors at [facility] who advised her to come into the emergency department to be re-evaluated. The patient denies a history of asthma hypertension diabetes mellitus congenital heart disease or heart murmur. Related Data Home Medications Medication Instructions Recorded Confirmed ibuprofen 800 mg PO Q8H PRN 02/04/20 02/04/20 Previous Rx's Medication Instructions Recorded Double Electric Breast Pump and #1 ea 03/31/19 Supplies cefdinir 300 mg PO BID #20 cap 02/04/20 ketorolac 10 mg PO Q6H PRN 5 Days tab 02/04/20 ondansetron HCl [Zofran] 4 mg PO Q6H PRN #12 tab 02/04/20 oxycodone-acetaminophen [Percocet] 1 tab PO Q8H PRN #12 tab 02/04/20 Allergies Allergy/AdvReac Type Severity Reaction Status Date / Time Latex, Natural Rubber Allergy Mild Rash Verified 02/04/20 10:48 Review of Systems Review of Systems Narrative: REVIEW OF SYSTEMS: CONSTITUTIONAL: No fever chills or sweats. No exposure to Covid19. Tested negative for Covid 19 1 week ago at [facility] prior to left ureteral stent placement NEUROLOGICAL: No headache or altered behavior. No numbness tingling paresthesias anesthesia or paresis EENT: No sore throat sinus congestion change in vision CARDIO-PULMONARY: No chest pain cough shortness of breath difficulty in breathing. She does have dizziness when she takes the hydrocodone HEMOTOLOGICAL: Increased bleeding and hematuria more than last week prior to stent placement GASTROINTESTINAL: The patient has had nausea but no vomiting diarrhea change in abdominal pain. She has left flank pain and lower abdominal pain. GENITAL URINARY: She denies any dysuria but has had gross hematuria with urination. MUSCULOSKELETAL/ RHEUMATOLOGICAL: Complains left lower back pain. DERMATOLOGICAL: No skin rash hives bruising or bleeding abnormalities. Patient History Medical History H/O abnormal cervical Papanicolaou smear (Acute) Kidney stones (Acute) Surgical History H/O oral surgery (Acute) alcohol intake frequency: 0-2 drinks per day Substance Use Type: does not use Exam Initial Vital Signs Initial Vital Signs: Vital Signs Temperature 97.5 F L 02/04/20 10:40 Pulse Rate 76 02/04/20 10:40 Respiratory Rate 14 02/04/20 10:40 Blood Pressure 124/77 02/04/20 10:40 Pulse Oximetry 99 02/04/20 10:40 Course Course Course Narrative: 1252: The patient's CT scan revealed: 1. Interval placement of a left ureteral stent with no discrete residual ureteral stone identified. 2. Slight interval increase in left hydronephrosis and new mild right hydroureteronephrosis without a discrete obstructing stone identified. 3. Mild left perinephric and periureteral fat stranding redemonstrated, similar to slightly increased compared to the prior study. Findings may represent reactive changes from prior obstruction and stent placement but associated infection cannot be excluded. Clinical correlation required 4. Additional nonobstructing left renal stones redemonstrated 5. Colonic diverticulosis without acute diverticulitis The patient's urine reveals what appears to be a an acute urinary tract infection and the patient will be treated as though she has an acute pyelonephritis. Orders Ordered: Discontinued Medications Sodium Chloride (Normal Saline 0.9%) 1,000 mls @ 1,000 mls/hr IV BOLUS ONE Stop: 02/04/20 11:51 Last Infusion: 02/04/20 12:35 Dose: 0 mls/hr Documented by: Admin: 02/04/20 11:31 Dose: 1,000 mls/hr Documented by: NAZARIO Ceftriaxone Sodium/Dextrose (Rocephin) 2 gm in 50 mls @ 100 mls/hr IV NOW ONE Stop: 02/04/20 13:21 Last Infusion: 02/04/20 13:40 Dose: 0 mls/hr Documented by: Admin: 02/04/20 12:56 Dose: 100 mls/hr Documented by: SABAS Ketorolac Tromethamine (Toradol) 30 mg IV NOW ONE Stop: 02/04/20 11:10 Last Admin: 02/04/20 11:31 Dose: 30 mg Documented by: NAZARIO Morphine Sulfate (Morphine) 4 mg IV NOW ONE Stop: 02/04/20 11:10 Last Admin: 02/04/20 11:31 Dose: 4 mg Documented by: NAZARIO Vital Signs Vital signs: Vital Signs - 8 hr 02/04/20 10:40 02/04/20 11:42 Temperature 97.5 F L Pulse Rate 76 70 Respiratory Rate 14 14 Blood Pressure 124/77 Blood Pressure [Left Arm] 127/70 Pulse Oximetry 99 99 MDM - Female Genitourinary Medical Records Attestation: I reviewed the patient's medical records. Lab Data Attestation: I reviewed the patient's lab results. Result diagrams: 02/04/20 11:21 02/04/20 11:21 Labs: Lab Results 02/04/20 02/04/20 02/04/20 Range/Units 10:50 10:50 11:21 WBC 6.3 (4.5-11.0) X10^3/uL RBC 4.85 (4.0-5.2) X10^6/uL Hgb 13.5 (12.0-16.0) g/dL Hct 39.9 (36-46) % MCV 82.3 (80-100) fL MCH 27.8 (26-34) PG MCHC 33.8 (30-36) % RDW 13.5 (11.6-14.8) % Plt Count 287 (150-400) X10^3/uL Neut % (Auto) 50.6 (50-75) % Lymph % (Auto) 33.1 (25-40) % [place] % (Auto) 7.9 (3-14) % Eos % (Auto) 7.7 H (2-4) % Baso % (Auto) 0.7 (0-2) % Neut # (Auto) 3200 (3217-4904) /uL Lymph # (Auto) 2100 (0664-4810) /uL [place] # (Auto) 500 (0-900) /uL Eos # (Auto) 500 H (0-450) /uL Baso # (Auto) 0 (0-100) /uL PT (10.1-12.7) SECONDS INR (0.9-1.3) APTT (26.4-36.2) SECONDS Sodium (137-145) mmol/L Potassium (3.4-5.1) mmol/L Chloride (98-107) mmol/L Carbon Dioxide (22-32) mmol/L BUN (7-17) mg/dL Creatinine (0.52-1.04) mg/dL Estimated GFR (>60) mL/min BUN/Creatinine Ratio (6-22) Glucose (70-100) mg/dL Calcium (8.4-10.2) mg/dL Total Bilirubin (0.2-1.3) mg/dL AST (14-36) IU/L ALT (<35) IU/L Alkaline Phosphatase (38-126) U/L Total Protein (6.3-8.2) g/dL Albumin (3.5-5.0) g/dL Globulin (1.7-4.1) g/dL Albumin/Globulin Ratio (1.0-2.8) Lipase (23-300) U/L Urine Color Red Urine Appearance Cloudy Urine pH 6.5 (4.5-8.0) Ur Specific [place] 1.010 (1.000-1.035) Urine Protein 3+ H (Negative) Urine Glucose (UA) Negative (Negative) g/dL Urine Ketones Negative (NEGATIVE) Urine Occult Blood 3+ H (Negative) Urine Nitrate Negative (Negative) Urine Bilirubin Negative (NEGATIVE) Urine Urobilinogen 0.2 (0.2) E.U./dL Ur Leukocyte Esterase 2+ H (NEGATIVE) Urine RBC >100/hpf H (0-5/HPF) Urine WBC 10-30/hpf H (0-5/HPF) Ur Squamous Epith Cells 1-5 /hpf (0-5/HPF) Urine Bacteria Many (>30) H (None) Ur Culture Indicated? Specimen cultured Urine Test Negative (Negative) 02/04/20 02/04/20 Range/Units 11:21 11:21 WBC (4.5-11.0) X10^3/uL RBC (4.0-5.2) X10^6/uL Hgb (12.0-16.0) g/dL Hct (36-46) % MCV (80-100) fL MCH (26-34) PG MCHC (30-36) % RDW (11.6-14.8) % Plt Count (150-400) X10^3/uL Neut % (Auto) (50-75) % Lymph % (Auto) (25-40) % [place] % (Auto) (3-14) % Eos % (Auto) (2-4) % Baso % (Auto) (0-2) % Neut # (Auto) (3674-5685) /uL Lymph # (Auto) (3891-1218) /uL [place] # (Auto) (0-900) /uL Eos # (Auto) (0-450) /uL Baso # (Auto) (0-100) /uL PT 11.2 (10.1-12.7) SECONDS INR 1.0 (0.9-1.3) APTT 31 (26.4-36.2) SECONDS Sodium 139 (137-145) mmol/L Potassium 4.3 (3.4-5.1) mmol/L Chloride 107 (98-107) mmol/L Carbon Dioxide 25 (22-32) mmol/L BUN 14 (7-17) mg/dL Creatinine 0.58 (0.52-1.04) mg/dL Estimated GFR > 60.0 (>60) mL/min BUN/Creatinine Ratio 24.1 H (6-22) Glucose 81 (70-100) mg/dL Calcium 11.4 H (8.4-10.2) mg/dL Total Bilirubin 0.5 (0.2-1.3) mg/dL AST 20 (14-36) IU/L ALT 16 (<35) IU/L Alkaline Phosphatase 175 H (38-126) U/L Total Protein 7.5 (6.3-8.2) g/dL Albumin 4.4 (3.5-5.0) g/dL Globulin 3.1 (1.7-4.1) g/dL Albumin/Globulin Ratio 1.4 (1.0-2.8) Lipase 53 (23-300) U/L Urine Color Urine Appearance Urine pH (4.5-8.0) Ur Specific Scott (1.000-1.035) Urine Protein (Negative) Urine Glucose (UA) (Negative) g/dL Urine Ketones (NEGATIVE) Urine Occult Blood (Negative) Urine Nitrate (Negative) Urine Bilirubin (NEGATIVE) Urine Urobilinogen (0.2) E.U./dL Ur Leukocyte Esterase (NEGATIVE) Urine RBC (0-5/HPF) Urine WBC (0-5/HPF) Ur Squamous Epith Cells (0-5/HPF) Urine Bacteria (None) Ur Culture Indicated? Urine Test (Negative) Discharge Plan Departure Patient Disposition: Home Clinical Impression: Acute left flank pain, Pyelonephritis Hematuria Qualifiers: Hematuria type: unspecified type Qualified Code(s): R31.9 - Hematuria, unspecified Urinary tract infection Qualifiers: Urinary tract infection type: acute cystitis Hematuria presence: with hematuria Qualified Code(s): N30.01 - Acute cystitis with hematuria Discharge Date/Time: 02/04/20 13:44 Instructions: DI for Kidney Infection, DI for Urinary Tract Infection (UTI) Activity Restrictions/Additional Instructions: 1. Push and encourage of fluid intake. Advance her diet as tolerated. 2. For nausea and vomiting use Zofran 4 mg every 6 hours as needed. 3. For pain and discomfort take Toradol 10 mg Q 6 hours. As a rescue medicine take Percocet 10/325 every 8 hours as needed. 4. Take the cefdinir 300 mg twice a day for the infection 5. For fever take acetaminophen 500 mg orally every 4 hours or 1 g every 6 hours 6. Call and report to Dr. Kwong and arrange follow-up to be re-evaluated if not better in 48-72 hours. 7. return at any time to the emergency department if you develop increasing uncontrolled pain. Do not breast feed while taking the Percocet. Return to the emergency department if you feel faint dizzy lightheaded or pass out. Prescriptions: New cefdinir 300 mg capsule 300 mg PO BID Qty: 20 RF: 0 ondansetron HCl [Zofran] 4 mg tablet 4 mg PO Q6H PRN (Reason: nausea and vomiting) Qty: 12 RF: 0 oxycodone-acetaminophen [Percocet] 10-325 mg tablet 1 tab PO Q8H PRN (Reason: pain) Qty: 12 RF: 0 ketorolac 10 mg tablet 10 mg PO Q6H PRN (Reason: pain) 5 Days RF: 0 No Action (DME) Double Electric Breast Pump and Supplies Qty: 1 RF: 0 ibuprofen 800 mg Tablet 800 mg PO Q8H PRN (Reason: Pain (Scale Score 7-10)) RF: 0 Referrals: Brian Becerril ARNP [Primary Care Provider] -
--- NOTE | 2020-02-04 11:14 | DI.CT.S_ITS ---
PROCEDURE: CT ABDOMEN PELVIS WO CON INDICATIONS: severe left flank pain, worse pain, s/p left ureter stent TECHNIQUE: Noncontrast 5 mm thick sections acquired from the diaphragms to the symphysis. 5 mm thick coronal and sagittal reformats were then performed. For radiation dose reduction, the following was used: automated exposure control, adjustment of mA and/or kV according to patient size. COMPARISON: Outside Film, CT, CT ABDOMEN PELVIS WITHOUT CONTRAST, 01/13/2020, 14:57. FINDINGS: Image quality: Excellent. Lung bases: Lung bases are clear. Heart size is normal. Urinary system: There is a new left ureteral stent with the proximal coil in the left renal pelvis and the distal portal and the urinary bladder. There is mild left hydronephrosis. No discrete ureteral stone identified. There is mild left perinephric and periureteral fat stranding which appears similar to slightly increased from the prior study. Approximately 4 small nonobstructing left renal stones are demonstrated, measuring up to 4 mm within the inferior pole. There is new mild right hydroureteronephrosis. No right renal or ureteral stones. Bladder demonstrates normal wall thickness. No calcified bladder stones. Other solid organs: Noncontrast evaluation of the liver demonstrates no focal hepatic lesions. Gallbladder appears within normal limits without calcified gallstones. Pancreas is normal in contours without peripancreatic fat stranding or fluid collections. Spleen is normal in size. No adrenal nodules. Peritoneum and bowel: Unenhanced bowel loops demonstrate normal wall thickness and caliber. There is colonic diverticulosis without acute diverticulitis. No free fluid or air. Nodes and vessels: No retroperitoneal or mesenteric adenopathy by size criteria. Aorta and inferior vena cava are normal in caliber. Abdominal wall: No ventral hernias. Pelvis: No free pelvic fluid. No inguinal hernias or adenopathy. Bones: No suspicious bony lesions. No vertebral body compression fractures. IMPRESSION: 1. Interval placement of a left ureteral stent with no discrete residual ureteral stone identified. 2. Slight interval increase in left hydronephrosis and new mild right hydroureteronephrosis without a discrete obstructing stone identified. 3. Mild left perinephric and periureteral fat stranding redemonstrated, similar to slightly increased compared to the prior study. Findings may represent reactive changes from prior obstruction and stent placement but associated infection cannot be excluded and correlation is recommended clinically. 4. Additional nonobstructing left renal stones redemonstrated. 5. Colonic diverticulosis without acute diverticulitis. Dictated by: Braden Tapia M.D. on 02/04/2020 at 12:04 Approved by: Braden Tapia M.D. on 02/04/2020 at 12:25
[2020-02-04 11:31] LABS: Add Manual Diff / Slide Review NO; Basophils Absolute Auto 0 /uL (0-100); Basophils Percent Auto 0.7 % (0-2); Eosinophils Absolute Auto 500 /uL (0-450); Eosinophils Percent Auto 7.7 % (2-4); Hematocrit 39.9 % (36-46); Hemoglobin 13.5 g/dL (12.0-16.0); Lymphocytes Absolute Auto 2100 /uL (1100-4500); Lymphocytes Percent Auto 33.1 % (25-40); Mean Corpuscular HGB Conc 33.8 % (30-36); Mean Corpuscular Hemoglobin 27.8 PG (26-34); Mean Corpuscular Volume 82.3 fL (80-100); Monocytes Absolute Auto 500 /uL (0-900); Monocytes Percent Auto 7.9 % (3-14); Neutrophils Absolute Auto 3200 /uL (1500-7000); Neutrophils Percent Auto 50.6 % (50-75); Platelet Count 287 X10^3/uL (150-400); Red Blood Cell Count 4.85 X10^6/uL (4.0-5.2); Red Cell Distribution Width 13.5 % (11.6-14.8); White Blood Cell Count 6.3 X10^3/uL (4.5-11.0)
[2020-02-04] MEDS: MORPHINE 4 MG/ML INJ IV (11:31)
[2020-02-04] MEDS: KETOROLAC 60 MG/2 ML VIAL 30 MG IV (11:31)
[2020-02-04] MEDS: SODIUM CHLORIDE 0.9% 1,000 ML 1000 ML IV (11:31)
[2020-02-04 11:35] LABS: Appearance Urine UA CLOUDY; Bilirubin Urine UA NEGATIVE (NEGATIVE); Color Urine UA RED; Glucose Urine UA NEGATIVE (Negative); Ketones Urine UA NEGATIVE (NEGATIVE); Leukocyte Esterase Urine UA 2+ (NEGATIVE); Nitrite Urine UA NEGATIVE (Negative); Occult Blood Urine UA 3+ (Negative); Protein Urine UA 3+ (Negative); Urobilinogen Urine UA 0.2 E.U./dL (0.2)
[2020-02-04] MEDS: ONDANSETRON 4 MG/2 ML INJ (11:41)
[2020-02-04 11:42] VITALS: BP 127/70; PULSE 70; RESP 14; O2SAT 99
[2020-02-04 11:43] LABS: Prothrombin Time 11.2 SECONDS (10.1-12.7)
[2020-02-04 11:46] LABS: pH Urine UA 6.5 (4.5-8.0)
[2020-02-04 11:46] LABS: PTT Partial Thromboplastin Tim 31 SECONDS (26.4-36.2)
[2020-02-04 11:47] LABS: Alanine Aminotransferase 16 IU/L (<35); Albumin 4.4 g/dL (3.5-5.0); Albumin Globulin Ratio 1.4 (1.0-2.8); Alkaline Phosphatase 175 U/L (38-126); Aspartate Aminotransferase 20 IU/L (14-36); BUN Creatinine Ratio 24.1 (6-22); Bilirubin Total 0.5 mg/dL (0.2-1.3); Blood Urea Nitrogen 14 mg/dL (7-17); Calcium 11.4 mg/dL (8.4-10.2); Carbon Dioxide 25 mmol/L (22-32); Chloride 107 mmol/L (98-107); Estimated Glomerular Filt Rate > 60.0 mL/min (>60); Globulin 3.1 g/dL (1.7-4.1); Glucose 81 mg/dL (70-100); HEMOLYSIS < 15 (0-50); Lipase 53 U/L (23-300); Potassium 4.3 mmol/L (3.4-5.1); Sodium 139 mmol/L (137-145); Total Protein 7.5 g/dL (6.3-8.2)
[2020-02-04 11:51] LABS: Bacteria Urine Many (>30); RBC Urine >100/HPF (0-5/HPF); Squamous Epithelial Cell Urine 1-5 /HPF (0-5/HPF); WBC Urine 10-30/HPF (0-5/HPF)
[2020-02-04 11:52] LABS: Culture Indicated Urine Specimen Cultured
[2020-02-04] MEDS: CEFTRIAXONE 2 GM/50 ML FROZ.PIGGY IV (12:56)
[2020-02-04 13:24] VITALS: BP 135/76; PULSE 96; RESP 15; TEMP 36.5; O2SAT 100
[2020-02-04 13:42] VITALS: BP 135/76; PULSE 96; TEMP 36.5; O2SAT 100
== END 2020-02-04 13:44 | disposition home or self-care (01) ==
PROVIDERS: Emergency Provider Emergency Medicine; PCP Registered Nurse Diabetes Educator
DX: N12 Tubulo-interstitial nephritis, not specified as acute or chronic (principal); N30.01 Acute cystitis with hematuria
CPT/HCPCS: 36415; 74176; 80053; 81001; 81025; 83690; 85025; 85610; 85730; 87086; 96361; 96365; 96375; 99284; J0696; J1885; J2270; J2405